=== PATIENT | male | born 1940 | race Two or more races ===

== ENCOUNTER → 2017-11-26 | Emergency (ER) | payer OTHER ==
[~2017-11-26] VITALS: Ht 165.1 cm; Wt 59.0 kg
[~2017-11-26] MED LIST: AVAPRO300 MG PO; COREG PO; COZAAR100 MG; COZAAR25 MG PO; NORVASC10 MG PO; NORVASC2.5 M1; NORVASC2.5 M1 PO; PRAVACHOL80 MG PO; PYRIDIUM200 MG PO; SMZ-TMP DS 800-1 TAB PO; TAMS0.4C; TAMS0.4C PO; URETRON DS1 TAB PO; UROXATRAL10 MG PO; VYTORIN 10/10 M1 TAB PO; ZOCOR20 MG PO; [UNRECOGNIZED DRUG - OTHER]
== END | disposition home or self-care (01) ==
LOC: ER 08:49
DX: N39.0 Urinary tract infection, site not specified (principal)

== ENCOUNTER 2018-04-22 12:26 | Emergency (ER) | payer OTHER ==
[~2018-04-22] VITALS: Ht 167.6 cm; Wt 56.7 kg
== END 2018-04-22 15:28 ==
LOC: ER 12:26
DX: N39.0 Urinary tract infection, site not specified (principal)

== ENCOUNTER 2018-05-07 13:29 | Emergency (ER) | payer OTHER ==
[~2018-05-07] VITALS: Ht 170.2 cm; Wt 57.6 kg
== END 2018-05-07 15:43 | disposition home or self-care (01) ==
LOC: ER 13:29
DX: R42 Dizziness and giddiness (principal)

== ENCOUNTER → 2018-06-05 14:12 | Outpatient (CLI) | payer OTHER | END | disposition home or self-care (01) | LOC: LAB 14:12 | DX: R97.20 Elevated prostate specific antigen [PSA] (principal) ==

== ENCOUNTER 2018-06-29 07:46 | Outpatient (CLI) | payer OTHER | END 2018-06-29 07:51 | disposition home or self-care (01) | LOC: SONOGRAMA 07:46 | DX: R97.20 Elevated prostate specific antigen [PSA] (principal) ==

== ENCOUNTER 2018-07-16 07:50 | Outpatient (CLI) | payer OTHER | END 2018-07-16 07:57 | disposition home or self-care (01) | LOC: TOM 07:50 | DX: C61 Malignant neoplasm of prostate (principal) ==

== ENCOUNTER 2018-07-20 12:22 | Emergency (ER) | payer OTHER ==
[~2018-07-20] VITALS: Ht 167.6 cm; Wt 59.9 kg
[2018-07-20] MEDS ORDERED: MUCINEX D ER 61 EACH PO (15:54)
[2018-07-20] MEDS ORDERED: ZITHROMAX500 MG PO (15:54)
== END 2018-07-20 16:19 | disposition home or self-care (01) ==
LOC: ER 12:22
DX: M54.5 Low back pain (principal); J32.8 Other chronic sinusitis

== ENCOUNTER 2018-08-02 12:42 | Outpatient (CLI) | payer OTHER ==
[~2018-08-02 12:42] MED LIST changes: +MUCINEX D ER 61 EACH PO; +ZITHROMAX500 MG PO
== END 2018-08-02 12:52 | disposition home or self-care (01) ==
LOC: RAD 12:42
DX: C61 Malignant neoplasm of prostate (principal)

== ENCOUNTER 2018-08-15 10:22 | Outpatient (CLI) | payer OTHER | END 2018-08-15 10:23 | disposition home or self-care (01) | LOC: TOM 10:22 | DX: C61 Malignant neoplasm of prostate (principal) ==

== ENCOUNTER 2018-09-05 19:15 | Emergency (ER) | payer OTHER ==
[~2018-09-05] VITALS: Ht 167.6 cm; Wt 54.4 kg
== END 2018-09-05 23:00 | disposition home or self-care (01) ==
LOC: ER 19:15
DX: S00.03XA Contusion of scalp, initial encounter (principal); S20.211A Contusion of right front wall of thorax, initial encounter; R41.0 Disorientation, unspecified; R42 Dizziness and giddiness; M54.5 Low back pain; W18.09XA Striking against other object with subsequent fall, initial encounter; Y93.89 Activity, other specified; Y92.018 Other place in single-family (private) house as the place of occurrence of the external cause; Y99.8 Other external cause status

== ENCOUNTER → 2018-09-27 | Outpatient (CLI) | payer OTHER | END | disposition home or self-care (01) | LOC: MRI 10:15 | DX: C61 Malignant neoplasm of prostate (principal) | CPT/HCPCS: 72197; A9579 ==

== ENCOUNTER 2018-10-17 15:50 | Emergency (ER) | payer OTHER ==
[~2018-10-17] VITALS: Ht 167.6 cm; Wt 54.4 kg
== END 2018-10-17 19:40 | disposition home or self-care (01) ==
LOC: ER 15:50
DX: J32.8 Other chronic sinusitis (principal)

== ENCOUNTER 2018-10-20 12:04 | Emergency (ER) | payer OTHER ==
[~2018-10-20] VITALS: Ht 167.6 cm; Wt 54.4 kg
== END 2018-10-20 15:29 ==
LOC: ER 12:04
DX: S92.352A Displaced fracture of fifth metatarsal bone, left foot, initial encounter for closed fracture (principal); X58.XXXA Exposure to other specified factors, initial encounter; Y93.89 Activity, other specified; Y92.89 Other specified places as the place of occurrence of the external cause; Y99.8 Other external cause status

== ENCOUNTER → 2018-11-04 | Emergency (ER) | payer OTHER ==
[~2018-11-04] VITALS: Ht 167.6 cm; Wt 54.4 kg
== END | disposition left against medical advice (07) ==
LOC: ER 12:01
DX: Z53.20 Procedure and treatment not carried out because of patient's decision for unspecified reasons (principal)

== ENCOUNTER 2018-11-09 11:57 | Emergency (ER) | payer OTHER ==
[~2018-11-09] VITALS: Ht 167.6 cm; Wt 54.4 kg
== END 2018-11-09 14:44 | disposition home or self-care (01) ==
LOC: ER 11:57
DX: I16.0 Hypertensive urgency (principal); I10 Essential (primary) hypertension; M54.5 Low back pain